=== PATIENT | male | born 1990 | race Caucasian/White ===

== ENCOUNTER 2017-11-17 23:07 | Emergency (ER) | payer OTHER ==
[~2017-11-17] VITALS: Ht 182.9 cm; Wt 99.8 kg
[2017-11-17 23:09] VITALS: BP 132/74
[2017-11-17] MEDS ORDERED: LIDOCAINE 1%-EPI 1:100,000 20 ML VIAL ONE ×2 (23:22→23:28)
[2017-11-17] MEDS ORDERED: LIDOCAINE 1%-EPI 1:100,000 20 ML VIAL TP ONE (23:30)
--- NOTE | 2017-11-17 23:30 | NUR ---
AT BEDSIDE FOR PROCEDURE
--- NOTE | 2017-11-17 23:45 | NUR ---
PT AND FAMILY MEMBER REFUSED TO SIGN D/C PAPERWORK. PT OBTAINED PRESCRIBED ORDERS FOR ANTIBIOTICS PER MD. PT STATES, "I AM UNHAPPY WITH THE CARE HERE AND WILL REPORT YOU, WE ARE GOING TO A DIFFERENT HOSPITAL." PT WAS BANDAGED. STABLE CONDITION. VSS. NEG ACUTE DISTRESS. PT. LEFT ER AT APPROX. [id number]. Addendum: 11/18/17 at 0002 by MIMI PT EXITED ED WITH STABLE STEADY GAIT WITHOUT ASSISTANCE.
== END 2017-11-18 00:01 | disposition home or self-care (01) ==
LOC: ER 23:11
DX: L05.91 Pilonidal cyst without abscess (principal); F17.200 Nicotine dependence, unspecified, uncomplicated; Z98.890 Other specified postprocedural states
CPT/HCPCS: 10080; 99284; A4606; A6402; A6407; J3490; Z7610